=== PATIENT | female | born 1990 | race Caucasian/White ===

== ENCOUNTER 2018-10-08 04:52 | Inpatient (IN) | payer OTHER ==
[2018-10-08] MEDS ORDERED: Ondansetron 4 MG/2 ML SDV IVPUSH PRN (05:01)
[2018-10-08] MEDS ORDERED: Nalbuphine 20 MG/ML 1 ML Syringe IVPUSH PRN (05:01)
[2018-10-08] MEDS ORDERED: Sodium Chloride 0.9% 10 ML Syringe FLUSH PRN (05:01)
[2018-10-08] MEDS ORDERED: Ampicillin 2 GM in Sodium Chloride 0.9% 100 ML IV ONE (05:01)
[2018-10-08] MEDS ORDERED: Lactated Ringers 1,000 ML ONE (05:11)
[2018-10-08] MEDS ORDERED: Ampicillin 2 GM AdvVial IV ONE (05:11)
[2018-10-08] MEDS ORDERED: Sodium Chloride 0.9% 100 ML ONE (05:11)
[2018-10-08] MEDS ORDERED: Oxytocin/Lactated Ringers 10 UNIT/1,000 ML BAG IV SCH (05:15)
--- NOTE | 2018-10-08 06:29 | PCM.LDHP ---
L&D History of Present Illness - General Date of Service: 10/08/18 Admit Problem/Dx: Patient Status Order with Admit Dx/Problem 10/08/18 05:01 Patient Status [ADT] Routine Admission Diagnosis/Problem Admission Diagnosis/Problem Active labor Source of Information: Patient History Limitations: Reports: No Limitations - History of Present Illness Introduction:: Patient is a 28 y/o at 38 3/7 wks who presents in labor. Contractions started early this AM. No bleeding or LOF. 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 (Approximate): Neurological History: Reports: Migraines - Infectious Disease History Infectious Disease History: Reports: Chicken Pox - Past Surgical History Other Surgical History Comment: Past surgical history Social & Family History - Family History Family Medical History: Noncontributory - Tobacco Use Smoking Status *Q: Never Smoker - Caffeine Use Caffeine Use: Reports: Coffee - Alcohol Use Alcohol Use History: No - Recreational Drug Use Recreational Drug Use: No - Living Situation & Occupation Living situation: Reports: Occupation: Employed H&P Review of Systems - Review of Systems: Review Of Systems: See Below General: Reports: No Symptoms Pulmonary: Reports: No Symptoms Cardiovascular: Reports: No Symptoms Gastrointestinal: Reports: No Symptoms Genitourinary: Reports: No Symptoms Musculoskeletal: Reports: No Symptoms Neurological: Reports: No Symptoms L&D Exam - Exam Exam: See Below - OB Specific Contraction Intensity: Moderate to Strong Movement: Active Heart Tones: Present Heart Tones per Min: 145 Heart Rate (FHR) Variability: Moderate (6-25 bmp) Presentation: Vertex - Villegas Score Villegas Score Cervix Position: Midposition Villegas Score Consistency: Soft Villegas Score Effacement: >80% Villegas Score Dilation: > 5 cm Villegas Score 's Station: -1 ,0 Villegas Score Total: 11 - Exam General: Alert, Oriented, Cooperative Lungs: Clear to Auscultation, Normal Respiratory Effort Cardiovascular: Regular Rate, Regular Rhythm GI/Abdominal Exam: Soft, Non-Tender Genitourinary: Normal external exam Extremities: Normal Inspection Skin: Warm, Dry, Intact - Patient Data Lab Results Last 24 hrs: Laboratory Results - last 24 hr 10/08/18 10/08/18 Range/Units 05:18 05:18 WBC 14.00 H (3.98-10.04) K/mm3 RBC 3.78 L (3.98-5.22) M/mm3 Hgb 11.0 L (11.2-15.7) gm/L Hct 33.0 L (34.1-44.9) % MCV 87.3 (79.4-94.8) fl MCH 29.1 (25.6-32.2) pg MCHC 33.3 (32.2-35.5) g/dl RDW Std Deviation 42.8 (36.4-46.3) fL Plt Count 119 L (182-369) K/mm3 MPV 12.4 H (9.4-12.3) fl Neut % (Auto) 81.4 H (34.0-71.1) % Lymph % (Auto) 11.1 L (19.3-51.7) % [place] % (Auto) 6.5 (4.7-12.5) % Eos % (Auto) 0.5 L (0.7-5.8) Baso % (Auto) 0.1 (0.1-1.2) % Neut # (Auto) 11.38 H (1.56-6.13) K/mm3 Lymph # (Auto) 1.56 (1.18-3.74) K/mm3 [place] # (Auto) 0.91 H (0.24-0.36) K/mm3 Eos # (Auto) 0.07 (0.04-0.36) K/mm3 Baso # (Auto) 0.02 (0.01-0.08) K/mm3 Blood Type O NEGATIVE Gel Antibody Screen Positive Result Diagrams: 10/08/18 05:18 - Problem List (1) 38 weeks gestation of SNOMED Code(s): 50801779 ICD Code: Z3A.38 - 38 WEEKS GESTATION OF Status: Acute Current Visit: Yes (2) Rh negative state in antepartum period SNOMED Code(s): 194664550 ICD Code: O09.899 - SUPERVISION OF OTHER HIGH RISK PREGNANCIES, UNSP TRIMESTER; Z67.91 - UNSPECIFIED BLOOD TYPE, RH NEGATIVE Status: Acute Current Visit: Yes (3) GBS (group B Streptococcus carrier), +RV culture, currently SNOMED Code(s): 6283606569407, 447853311, 0131941585313 ICD Code: O99.820 - STREPTOCOCCUS B CARRIER STATE COMPLICATING Status: Acute Current Visit: Yes Problem List Initiated/Reviewed/Updated: Yes Orders Last 24hrs: Active Orders 24 hr Category Date Time Status Patient Status [ADT] Routine ADT 10/08/18 05:01 Active Activity as Tolerated [RC] PFP Care 10/08/18 05:01 Active Communication Order [RC] ASDIRECTED Care 10/08/18 05:01 Active Heart Tones [RC] ASDIRECTED Care 10/08/18 05:02 Active Non Stress Test [RC] PER UNIT ROUTINE Care 10/08/18 05:01 Active Notify Provider [RC] PFP Care 10/08/18 05:01 Active Notify Provider [RC] PRN Care 10/08/18 05:01 Active Peripheral IV Care [RC] . DIRECTED Care 10/08/18 05:02 Active Vital Signs [RC] PER UNIT ROUTINE Care 10/08/18 05:01 Active Regular Diet [DIET] Diet 10/08/18 Breakfast Active ANTIBODY IDENTIFICATION [BBK] Stat Lab 10/08/18 05:18 Results RAPID PLASMA REAGIN,RPR [CHEM] Routine Lab 10/08/18 05:18 Received TYPE AND SCREEN [BBK] Stat Lab 10/08/18 05:18 Results Ampicillin 1 gm Med 10/08/18 09:00 Active Sodium Chloride 0.9% [Normal Saline] 100 ml IV Q4H Lactated Ringers [Ringers, Lactated] 1,000 ml Med 10/08/18 05:15 Active IV ASDIRECTED Nalbuphine [Nubain] Med 10/08/18 05:01 Active 10 mg IVPUSH Q2H PRN Ondansetron [Zofran] Med 10/08/18 05:01 Active 4 mg IVPUSH Q4H PRN Oxytocin/Lactated Ringers [Pitocin in LR 10 Units/1,000 Med 10/08/18 05:15 Active ML] 10 unit in 1,000 ml IV .CONTINUOUS Sodium Chloride 0.9% [Saline Flush] Med 10/08/18 05:01 Active 10 ml FLUSH ASDIRECTED PRN Electronic Heart Tones Ext w TOCO [WOMSER] Oth 10/08/18 05:01 Ordered Routine Electronic Heart Tones Internal [WOMSER] Per Unit Oth 10/08/18 05:01 Ordered Routine Peripheral IV Insertion Adult [OM.PC] Routine Oth 10/08/18 05:01 Ordered Resuscitation Status Routine Resus Stat 10/08/18 05:01 Ordered Medication Orders Ampicillin Sodium 1 gm/ Sodium (Chloride) 100 mls @ 200 mls/hr IV Q4H KODI Lactated Ringer's (Ringers, Lactated) 1,000 mls @ 100 mls/hr IV ASDIRECTED KODI Oxytocin/Lactated Ringer's (Pitocin In Lr 10 Units/1,000 Ml) 10 unit in 1,000 mls @ 500 mls/hr IV .CONTINUOUS KODI Nalbuphine HCl (Nubain) 10 mg IVPUSH Q2H PRN PRN Reason: pain Ondansetron HCl (Zofran) 4 mg IVPUSH Q4H PRN PRN Reason: Nausea/Vomiting Sodium Chloride (Saline Flush) 10 ml FLUSH ASDIRECTED PRN PRN Reason: Keep Vein Open Assessment/Plan Comment:: 28 y/o at 38 3/7 wks who presents in labor * Labs done * GBS positive, plan Ampicillin in labor * Pain management per patient preference * Anticipate * Rh negative, will assess baby blood type following delivery to see if Rhogam required
[2018-10-08] MEDS: Lactated Ringers 1,000 ML IV SCH ×3 (07:00→11:48)
[2018-10-08] MEDS ORDERED: ePHEDrine 50 MG/ML SDV IVPUSH PRN (07:10)
[2018-10-08] MEDS ORDERED: diphenhydrAMINE 50 MG/ML SDV IVPUSH PRN (07:10)
[2018-10-08] MEDS ORDERED: fentaNYL 100 MCG/2 ML SDV ONE (07:12)
[2018-10-08] MEDS ORDERED: Bupivacaine/fentaNYL/NS 100 ML Bag EPIDUR SCH (07:15)
--- NOTE | 2018-10-08 07:32 | PCM.PREANE ---
Preanesthetic Assessment - Procedure Proposed Procedure: chele - Anesthesia/Transfusion/Family Hx Anesthesia History: Prior Anesthesia Without Reaction Family History of Anesthesia Reaction: No Transfusion History: Prior Transfusion Without Reaction - Review of Systems General: No Symptoms Pulmonary: No Symptoms Cardiovascular: No Symptoms Gastrointestinal: No Symptoms Neurological: No Symptoms Other: Reports: None - Physical Assessment O2 Sat by Pulse Oximetry: 99 Respiratory Rate: 16 Vital Signs: Last Vital Signs Temp 98.1 F 10/08/18 05:01 Pulse 96 10/08/18 05:01 Resp 16 10/08/18 05:01 BP 126/89 10/08/18 05:01 Pulse Ox 99 10/08/18 05:01 Height: 5 ft 1 in Weight: 63.049 kg ASA Class: 2 Mental Status: Alert & Oriented x3 Airway Class: Mallampati = 1 Dentition: Reports: Normal Dentition Thyro-Mental Finger Breadths: 3 Mouth Opening Finger Breadths: 3 ROM/Head Extension: Full Lungs: Clear to Auscultation, Normal Respiratory Effort Cardiovascular: Regular Rate, Regular Rhythm - Lab Values: Laboratory Last Values WBC 14.00 K/mm3 (3.98-10.04) H 10/08/18 05:18 RBC 3.78 M/mm3 (3.98-5.22) L 10/08/18 05:18 Hgb 11.0 gm/L (11.2-15.7) L 10/08/18 05:18 Hct 33.0 % (34.1-44.9) L 10/08/18 05:18 MCV 87.3 fl (79.4-94.8) 10/08/18 05:18 MCH 29.1 pg (25.6-32.2) 10/08/18 05:18 MCHC 33.3 g/dl (32.2-35.5) 10/08/18 05:18 RDW Std Deviation 42.8 fL (36.4-46.3) 10/08/18 05:18 Plt Count 119 K/mm3 (182-369) L 10/08/18 05:18 MPV 12.4 fl (9.4-12.3) H 10/08/18 05:18 Neut % (Auto) 81.4 % (34.0-71.1) H 10/08/18 05:18 Lymph % (Auto) 11.1 % (19.3-51.7) L 10/08/18 05:18 [place] % (Auto) 6.5 % (4.7-12.5) 10/08/18 05:18 Eos % (Auto) 0.5 (0.7-5.8) L 10/08/18 05:18 Baso % (Auto) 0.1 % (0.1-1.2) 10/08/18 05:18 Neut # (Auto) 11.38 K/mm3 (1.56-6.13) H 10/08/18 05:18 Lymph # (Auto) 1.56 K/mm3 (1.18-3.74) 10/08/18 05:18 [place] # (Auto) 0.91 K/mm3 (0.24-0.36) H 10/08/18 05:18 Eos # (Auto) 0.07 K/mm3 (0.04-0.36) 10/08/18 05:18 Baso # (Auto) 0.02 K/mm3 (0.01-0.08) 10/08/18 05:18 Blood Type O NEGATIVE 10/08/18 05:18 Gel Antibody Screen Positive 10/08/18 05:18 - Allergies Allergies/Adverse Reactions: Allergies Allergy/AdvReac Type Severity Reaction Status Date / Time No Known Allergies Allergy Verified 09/29/16 12:34 - Blood Blood Available: No - Acknowledgements Anesthesia Type Planned: Epidural Pt an Appropriate Candidate for the Planned Anesthesia: Yes Alternatives and Risks of Anesthesia Discussed w Pt/Guardian: Yes Pt/Guardian Understands and Agrees with Anesthesia Plan: Yes PreAnesthesia Questionnaire HEENT History: Reports: Impaired Vision Cardiovascular History: Reports: None Respiratory History: Reports: None Gastrointestinal History: Reports: GERD (with preg) Genitourinary History: Reports: None 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) Para: 1 Musculoskeletal History: Reports: None Endocrine/Metabolic History: Reports: None Hematologic History: Reports: Anemia Immunologic History: Reports: None Oncologic (Cancer) History: Reports: None Dermatologic History: Reports: None - Infectious Disease History Infectious Disease History: Reports: Chicken Pox - Past Surgical History GI Surgical History: Reports: EGD Other Surgical History Comment: Past surgical history - SUBSTANCE USE Smoking Status *Q: Never Smoker Tobacco Use Within Last Twelve Months: No Second Hand Smoke Exposure: No Recreational Drug Use History: No - HOME MEDS Home Medications: Home Meds Acetaminophen [Tylenol] 650 mg PO Q4H PRN #30 tablet 09/30/16 [Rx] Omeprazole 20 mg PO BIDAC #60 cap.cr 09/30/16 [Rx] Ondansetron [Zofran ODT] 4 mg PO Q4H PRN #30 tab.dis 09/30/16 [Rx] Sucralfate [Carafate] 1 gm PO QIDACANDBED #60 tablet 09/30/16 [Rx] - CURRENT (IN HOUSE) MEDS Current Meds: Current Medications Diphenhydramine HCl (Benadryl) 25 mg IVPUSH Q6H PRN PRN Reason: pruritis Ephedrine Sulfate (Ephedrine Sulfate) 5 mg IVPUSH ASDIRECTED PRN PRN Reason: Hypotension Fentanyl (Sublimaze) 100 mcg EPIDUR Q3H PRN PRN Reason: Pain Fentanyl/Bupivacaine HCl (Fentanyl/Bupivacaine/Ns 2 Mcg-0.125% 100 Ml) 100 ml EPIDUR ASDIRECTED KODI Ampicillin Sodium 1 gm/ Sodium (Chloride) 100 mls @ 200 mls/hr IV Q4H KODI Lactated Ringer's (Ringers, Lactated) 1,000 mls @ 100 mls/hr IV ASDIRECTED KODI Oxytocin/Lactated Ringer's (Pitocin In Lr 10 Units/1,000 Ml) 10 unit in 1,000 mls @ 500 mls/hr IV .CONTINUOUS KODI Nalbuphine HCl (Nubain) 10 mg IVPUSH Q2H PRN PRN Reason: pain Ondansetron HCl (Zofran) 4 mg IVPUSH Q4H PRN PRN Reason: Nausea/Vomiting Sodium Chloride (Saline Flush) 10 ml FLUSH ASDIRECTED PRN PRN Reason: Keep Vein Open Discontinued Medications Ampicillin Sodium (Ampicillin) Confirm Administered Dose 2 gm IV .STK-MED ONE Stop: 10/08/18 05:12 Fentanyl (Sublimaze) Confirm Administered Dose 100 mcg .ROUTE .STK-MED ONE Stop: 10/08/18 07:13 Ampicillin Sodium 2 gm/ Sodium (Chloride) 100 mls @ 200 mls/hr IV ONETIME ONE Stop: 10/08/18 05:30 Last Admin: 10/08/18 05:15 Dose: 200 mls/hr Lactated Ringer's (Ringers, Lactated) Confirm Administered Dose 1,000 mls @ as directed .ROUTE .[facility]-MED ONE Stop: 10/08/18 05:12 Last Admin: 10/08/18 05:15 Dose: 900 mls/hr Sodium Chloride (Normal Saline) Confirm Administered Dose 100 mls @ as directed .ROUTE .[facility]-MED ONE Stop: 10/08/18 05:12
[2018-10-08] MEDS: fentaNYL 100 MCG/2 ML SDV EPIDUR PRN ×2 (07:33→12:15)
[2018-10-08] MEDS: Ampicillin 1 GM in Sodium Chloride 0.9% 100 ML IV SCH ×2 (09:00→14:35)
[2018-10-08] MEDS ORDERED: Bupivacaine 0.25% 10 ML SDV ONE (12:00)
--- NOTE | 2018-10-08 12:58 | PCM.DEL ---
L & D Note - General Info Date of Service: 10/08/18 - Delivery Note Labor: Spontaneous Delivery Outcome: Livebirth Delivery Method: Spontaneous Vaginal Delivery-Single Delivery Mode: Spontaneous Presentation: Right Occiput Anterior (CORA) Nuchal Cord: Present, Reduced Anesthesia Type: Epidural Amniotic Fluid Description: Clear Episiotomy Type: None Laceration: None Placenta: Intact, Spontaneous Cord: 3 Vessels Estimated Blood Loss: 200 Resuscitation Needed: Yes [place]oll: Bulb Syringe, Stimulated, Warmed, [place] Used, Warmer Used Delivery Comments (Free Text/Narrative):: Patient found to be complete and began pushing. With maternal pushing effort head delivered from an CORA presentation. Nuchal cord present and reduced. With gentle downward tractions anterior shoulder did not immediately deliver. Patient then placed in deeper McRobert's and anterior shoulder delivered. Remainder of body quickly followed. Baby placed on maternal abdomen. Cord clamped and cut. Cord blood obtained. Placenta allowed time to separate and expelled intact. Inspection of the perineum showed no lacerations - General Info Date of Service: 10/08/18 - Patient Data Vitals - Most Recent: Last Vital Signs Temp 36.7 C 10/08/18 05:01 Pulse 96 10/08/18 05:01 Resp 16 10/08/18 07:32 BP 126/89 10/08/18 05:01 Pulse Ox 99 10/08/18 07:32 Weight - Most Recent: 63.049 kg I&O - Last 24 Hours: Intake & Output 10/07/18 10/08/18 10/08/18 22:59 06:59 14:59 Intake Total 1100 Balance 1100 Lab Results Last 24 Hours: Laboratory Results - last 24 hr 10/08/18 10/08/18 10/08/18 Range/Units 05:18 05:18 05:18 WBC 14.00 H (3.98-10.04) K/mm3 RBC 3.78 L (3.98-5.22) M/mm3 Hgb 11.0 L (11.2-15.7) gm/L Hct 33.0 L (34.1-44.9) % MCV 87.3 (79.4-94.8) fl MCH 29.1 (25.6-32.2) pg MCHC 33.3 (32.2-35.5) g/dl RDW Std Deviation 42.8 (36.4-46.3) fL Plt Count 119 L (182-369) K/mm3 MPV 12.4 H (9.4-12.3) fl Neut % (Auto) 81.4 H (34.0-71.1) % Lymph % (Auto) 11.1 L (19.3-51.7) % [place] % (Auto) 6.5 (4.7-12.5) % Eos % (Auto) 0.5 L (0.7-5.8) Baso % (Auto) 0.1 (0.1-1.2) % Neut # (Auto) 11.38 H (1.56-6.13) K/mm3 Lymph # (Auto) 1.56 (1.18-3.74) K/mm3 [place] # (Auto) 0.91 H (0.24-0.36) K/mm3 Eos # (Auto) 0.07 (0.04-0.36) K/mm3 Baso # (Auto) 0.02 (0.01-0.08) K/mm3 RPR Non-reactive (NONREACTIVE) Blood Type O NEGATIVE Gel Antibody Screen Positive Med Orders - Current: Current Medications Diphenhydramine HCl (Benadryl) 25 mg IVPUSH Q6H PRN PRN Reason: pruritis Ephedrine Sulfate (Ephedrine Sulfate) 5 mg IVPUSH ASDIRECTED PRN PRN Reason: Hypotension Fentanyl (Sublimaze) 100 mcg EPIDUR Q3H PRN PRN Reason: Pain Last Admin: 10/08/18 12:15 Dose: 100 mcg Fentanyl/Bupivacaine HCl (Fentanyl/Bupivacaine/Ns 2 Mcg-0.125% 100 Ml) 100 ml EPIDUR ASDIRECTED [facility] Last Admin: 10/08/18 07:34 Dose: 100 ml Ampicillin Sodium 1 gm/ Sodium (Chloride) 100 mls @ 200 mls/hr IV Q4H [facility] Last Admin: 10/08/18 09:00 Dose: 200 mls/hr Lactated Ringer's (Ringers, Lactated) 1,000 mls @ 100 mls/hr IV ASDIRECTED [facility] Last Admin: 10/08/18 11:48 Dose: 999 mls/hr Oxytocin/Lactated Ringer's (Pitocin In Lr 10 Units/1,000 Ml) 10 unit in 1,000 mls @ 500 mls/hr IV .CONTINUOUS KODI Last Admin: 10/08/18 11:01 Dose: 500 mls/hr Nalbuphine HCl (Nubain) 10 mg IVPUSH Q2H PRN PRN Reason: pain Ondansetron HCl (Zofran) 4 mg IVPUSH Q4H PRN PRN Reason: Nausea/Vomiting Sodium Chloride (Saline Flush) 10 ml FLUSH ASDIRECTED PRN PRN Reason: Keep Vein Open Discontinued Medications Ampicillin Sodium (Ampicillin) Confirm Administered Dose 2 gm IV .STK-MED ONE Stop: 10/08/18 05:12 Last Admin: 10/08/18 07:42 Dose: Not Given Fentanyl (Sublimaze) Confirm Administered Dose 100 mcg .ROUTE .STK-MED ONE Stop: 10/08/18 07:13 Last Admin: 10/08/18 07:41 Dose: Not Given Ampicillin Sodium 2 gm/ Sodium (Chloride) 100 mls @ 200 mls/hr IV ONETIME ONE Stop: 10/08/18 05:30 Last Admin: 10/08/18 05:15 Dose: 200 mls/hr Lactated Ringer's (Ringers, Lactated) Confirm Administered Dose 1,000 mls @ as directed .ROUTE .STK-MED ONE Stop: 10/08/18 05:12 Last Admin: 10/08/18 05:15 Dose: 900 mls/hr Sodium Chloride (Normal Saline) Confirm Administered Dose 100 mls @ as directed .ROUTE .STK-MED ONE Stop: 10/08/18 05:12 Last Admin: 10/08/18 07:42 Dose: Not Given - Problem List & Annotations (1) 38 weeks gestation of SNOMED Code(s): 90740136 Code(s): Z3A.38 - 38 WEEKS GESTATION OF Status: Acute Current Visit: Yes (2) Rh negative state in antepartum period SNOMED Code(s): 648646353 Code(s): O09.899 - SUPERVISION OF OTHER HIGH RISK PREGNANCIES, UNSP TRIMESTER ; Z67.91 - UNSPECIFIED BLOOD TYPE, RH NEGATIVE Status: Acute Current Visit: Yes (3) GBS (group B Streptococcus carrier), +RV culture, currently SNOMED Code(s): 0444425963919, 880128545, 1807703791696 Code(s): O99.820 - STREPTOCOCCUS B CARRIER STATE COMPLICATING Status: Acute Current Visit: Yes - Problem List Review Problem List Initiated/Reviewed/Updated: Yes - My Orders Last 24 Hours: My Active Orders 10/08/18 05:01 Patient Status [ADT] Routine Activity as Tolerated [RC] PFP Communication Order [RC] ASDIRECTED Non Stress Test [RC] PER UNIT ROUTINE Notify Provider [RC] PFP Notify Provider [RC] PRN Vital Signs [RC] PER UNIT ROUTINE Nalbuphine [Nubain] 10 mg IVPUSH Q2H PRN Ondansetron [Zofran] 4 mg IVPUSH Q4H PRN Sodium Chloride 0.9% [Saline Flush] 10 ml FLUSH ASDIRECTED PRN Electronic Heart Tones Ext w TOCO [WOMSER] Routine Electronic Heart Tones Internal [WOMSER] Per Unit Routine Peripheral IV Insertion Adult [OM.PC] Routine Resuscitation Status Routine 10/08/18 05:02 Heart Tones [RC] ASDIRECTED Peripheral IV Care [RC] . DIRECTED 10/08/18 05:15 Lactated Ringers [Ringers, Lactated] 1,000 ml IV ASDIRECTED Oxytocin/Lactated Ringers [Pitocin in LR 10 Units/1,000 ML] 10 unit in 1,000 ml IV .CONTINUOUS 10/08/18 05:18 ANTIBODY IDENTIFICATION [BBK] Stat TYPE AND SCREEN [BBK] Stat 10/08/18 09:00 Ampicillin 1 gm Sodium Chloride 0.9% [Normal Saline] 100 ml IV Q4H 10/08/18 Breakfast Regular Diet [DIET] - Assessment Assessment:: 28 y/o G2 now P2002 PPD#0 from at 38 3/7 wks - Plan Plan:: * Routine cares * Encourage breast feeding * Rh negative, Baby Rh positive. Will need Rhogam * Discharge home in 1-2 days
[2018-10-08] MEDS ORDERED: Docusate Sodium 100 MG Cap PO PRN (13:27)
[2018-10-08] MEDS ORDERED: Benzocaine/Menthol 20%-0.5% Spray 56 GM Canister TOP PRN (13:27)
[2018-10-08] MEDS ORDERED: Acetaminophen 325 MG Tab PO PRN (13:27)
[2018-10-08] MEDS ORDERED: Lanolin 100% Cream 7 GM Tube TOP PRN (13:27)
[2018-10-08] MEDS ORDERED: Witch Hazel Medicated Pads 100/Jar TOP PRN (13:27)
[2018-10-08] MEDS ORDERED: Ibuprofen 600 MG Tab PO PRN (13:27)
--- NOTE | 2018-10-09 07:39 | PCM48HPAN ---
Post Anesthesia Note - EVALUATION WITHIN 48HRS OF ANESTHETIC Vital Signs in Normal Range: Yes Patient Participated in Evaluation: Yes Respiratory Function Stable: Yes Airway Patent: Yes Cardiovascular Function Stable: Yes Hydration Status Stable: Yes Pain Control Satisfactory: Yes Nausea and Vomiting Control Satisfactory: Yes Mental Status Recovered: Yes Pulse Rate: 78 Resp Rate: 14 Temperature: 36.8 C Blood Pressure: 118/64 - COMMENTS/OBSERVATIONS Free Text/Narrative:: no anesthesia complications noted
--- NOTE | 2018-10-09 07:58 | PCM.PNPP ---
- General Info Date of Service: 10/09/18 Functional Status: Reports: Pain Controlled, Tolerating Diet, Ambulating, Urinating - Review of Systems General: Reports: No Symptoms Pulmonary: Reports: No Symptoms Cardiovascular: Reports: No Symptoms Gastrointestinal: Reports: No Symptoms Genitourinary: Reports: No Symptoms Musculoskeletal: Reports: No Symptoms Neurological: Reports: No Symptoms - Patient Data Vital Signs - Most Recent: Last Vital Signs Temp 36.8 C 10/09/18 07:39 Pulse 78 10/09/18 07:39 Resp 14 10/09/18 07:39 BP 118/64 10/09/18 07:39 Pulse Ox 98 10/09/18 04:07 Weight - Most Recent: 63.049 kg I&O - Last 24 Hours: Intake & Output 10/08/18 10/09/18 10/09/18 22:59 06:59 14:59 Intake Total 12 Balance 12 Lab Results - Last 24 Hours: Laboratory Results - last 24 hr 10/08/18 10/08/18 Range/Units 05:18 17:36 RPR Non-reactive (NONREACTIVE) Blood Type O NEGATIVE Gel Antibody Screen Positive Screen 1 ros/5 flds - neg RhIG Candidate? Yes Rhogam Indicated Yes, baby rh pos H Med Orders - Current: Current Medications Acetaminophen (Tylenol) 650 mg PO Q4H PRN PRN Reason: mild pain or fever Benzocaine/Menthol (Dermoplast Pain Relief [place]) 0 gm TOP ASDIRECTED PRN PRN Reason: Perineal Comfort Measure Last Admin: 10/08/18 16:13 Dose: 1 can Docusate Sodium (Colace) 100 mg PO BID PRN PRN Reason: Constipation Emollient Ointment (Lansinoh Hpa) 0 gm TOP ASDIRECTED PRN PRN Reason: Sore Nipples Ibuprofen (Motrin) 600 mg PO Q6H PRN PRN Reason: Mild pain or fever Witch Carmelita (Tucks) 1 pad TOP ASDIRECTED PRN PRN Reason: Hemorrhoid pain Last Admin: 10/08/18 16:14 Dose: 1 jar Discontinued Medications Ampicillin Sodium (Ampicillin) Confirm Administered Dose 2 gm IV .STK-MED ONE Stop: 10/08/18 05:12 Last Admin: 10/08/18 07:42 Dose: Not Given Bupivacaine HCl (Sensorcaine-Mpf 0.25%) 20 ml .ROUTE .STK-MED ONE Stop: 10/08/18 12:01 Diphenhydramine HCl (Benadryl) 25 mg IVPUSH Q6H PRN PRN Reason: pruritis Ephedrine Sulfate (Ephedrine Sulfate) 5 mg IVPUSH ASDIRECTED PRN PRN Reason: Hypotension Fentanyl (Sublimaze) 100 mcg EPIDUR Q3H PRN PRN Reason: Pain Last Admin: 10/08/18 12:15 Dose: 100 mcg Fentanyl (Sublimaze) Confirm Administered Dose 100 mcg .ROUTE .STK-MED ONE Stop: 10/08/18 07:13 Last Admin: 10/08/18 07:41 Dose: Not Given Fentanyl/Bupivacaine HCl (Fentanyl/Bupivacaine/Ns 2 Mcg-0.125% 100 Ml) 100 ml EPIDUR ASDIRECTED KODI Last Admin: 10/08/18 07:34 Dose: 100 ml Ampicillin Sodium 2 gm/ Sodium (Chloride) 100 mls @ 200 mls/hr IV ONETIME ONE Stop: 10/08/18 05:30 Last Admin: 10/08/18 05:15 Dose: 200 mls/hr Ampicillin Sodium 1 gm/ Sodium (Chloride) 100 mls @ 200 mls/hr IV Q4H [facility] Last Admin: 10/08/18 14:35 Dose: Not Given Lactated Ringer's (Ringers, Lactated) 1,000 mls @ 100 mls/hr IV ASDIRECTED [facility] Last Admin: 10/08/18 11:48 Dose: 999 mls/hr Oxytocin/Lactated Ringer's (Pitocin In Lr 10 Units/1,000 Ml) 10 unit in 1,000 mls @ 500 mls/hr IV .CONTINUOUS KODI Last Admin: 10/08/18 11:01 Dose: 500 mls/hr Lactated Ringer's (Ringers, Lactated) Confirm Administered Dose 1,000 mls @ as directed .ROUTE .STK-MED ONE Stop: 10/08/18 05:12 Last Admin: 10/08/18 05:15 Dose: 900 mls/hr Sodium Chloride (Normal Saline) Confirm Administered Dose 100 mls @ as directed .ROUTE .STK-MED ONE Stop: 10/08/18 05:12 Last Admin: 10/08/18 07:42 Dose: Not Given Nalbuphine HCl (Nubain) 10 mg IVPUSH Q2H PRN PRN Reason: pain Ondansetron HCl (Zofran) 4 mg IVPUSH Q4H PRN PRN Reason: Nausea/Vomiting Sodium Chloride (Saline Flush) 10 ml FLUSH ASDIRECTED PRN PRN Reason: Keep Vein Open - Infant Interaction Disposition, : in Room with Family Interaction: Holding Feeding: Attempted ; Nursed Fair/Poor Support Person: - Recovery Exam Fundal Tone: Firm Fundal Level: At Umbilicus Fundal Placement: Midline Lochia Amount: Small Lochia Color: Rubra/Red Perineum Description: Intact, Minimal Bruising/Swelling Episiotomy/Laceration: None Bladder Status: Voiding Urinary Elimination: Voided - Exam General: Alert, Oriented, Cooperative GI/Abdominal Exam: Soft, Non-Tender Extremities: Normal Inspection Skin: Warm, Dry, Intact - Problem List & Annotations (1) 38 weeks gestation of SNOMED Code(s): 22113279 Code(s): Z3A.38 - 38 WEEKS GESTATION OF Status: Acute Current Visit: Yes (2) Rh negative state in antepartum period SNOMED Code(s): 290184435 Code(s): O09.899 - SUPERVISION OF OTHER HIGH RISK PREGNANCIES, UNSP TRIMESTER ; Z67.91 - UNSPECIFIED BLOOD TYPE, RH NEGATIVE Status: Acute Current Visit: Yes (3) GBS (group B Streptococcus carrier), +RV culture, currently SNOMED Code(s): 2264612513549, 692372228, 1883664710365 Code(s): O99.820 - STREPTOCOCCUS B CARRIER STATE COMPLICATING Status: Acute Current Visit: Yes (4) Vaginal delivery SNOMED Code(s): 637252344 Code(s): O80 - ENCOUNTER FOR FULL-TERM UNCOMPLICATED DELIVERY Status: Acute Current Visit: Yes - Problem List Review Problem List Initiated/Reviewed/Updated: Yes - My Orders Last 24 Hours: My Active Orders 10/08/18 13:27 Activity as Tolerated [RC] PER UNIT ROUTINE Vital Signs [RC] 03,09,15,21 Acetaminophen [Tylenol] 650 mg PO Q4H PRN Benzocaine/Menthol [Dermoplast Pain Relief [place]] See Dose Instructions TOP ASDIRECTED PRN Docusate Sodium [Colace] 100 mg PO BID PRN Ibuprofen [Motrin] 600 mg PO Q6H PRN Lanolin [Lansinoh HPA] See Dose Instructions TOP ASDIRECTED PRN Witch Carmelita [Tucks] 1 pad TOP ASDIRECTED PRN Assess Lochia [WOMSER] Per Unit Routine Assess Uterine Involution [WOMSER] Per Unit Routine Breast Pump [WOMSER] Per Unit Routine Heat Therapy [OM.PC] PRN Ice Therapy [OM.PC] Per Unit Routine Perineal Care [OM.PC] Per Unit Routine Peripheral IV Discontinue [OM.PC] Routine Sitz Bath [OM.PC] Per Unit Routine 10/08/18 Lunch Regular Diet [DIET] 10/09/18 13:27 Heat Therapy [OM.PC] PRN - Assessment Assessment:: 28 y/o G2 now P2002 PPD#1 from at 38 3/7 wks - Plan Plan:: * Routine cares * Encourage breast feeding * Rh negative, Baby Rh positive. S/p Rhogam * Discharge home today vs tomorrow depending upon how baby continues to breast feed throughout the day
[2018-10-10 08:49] VITALS: BP 124/77
--- NOTE | 2018-10-10 08:52 | PCM.DCSUM1 ---
Discharge Summary - Hospital Course Free Text/Narrative:: Vern is a 28-year-old 2 now para 2002 white female who was admitted at 38-3/7 weeks gestational age on all 01/05/2018 in active labor. She progressed and delivered spontaneously. She had a tucker, viable, male in right occiput anterior position. Nuchal cord 1 was reduced without problems. She had epidural for labor. Amniotic fluid was clear. She had no lacerations or suturing as necessary. Umbilical cord had 3 vessels. Estimated blood loss was 200 mL. patient is nursing without problems. Lochia is minimal. She is voiding well and ambulating without concerns. She is desiring discharge home. Diagnosis: Stroke: No - Discharge Data Discharge Date: 10/10/18 Discharge Disposition: Home, Self-Care 01 Condition: Good - Patient Instructions Diet: Regular Diet as Tolerated (Nursing diet and increase calories and calcium is recommended) Activity: As Tolerated (Kline or tampons until bleeding resolves.) Driving: May Drive Today Showering/Bathing: May Shower (May take a bath) Notify Provider of: Fever, Increased Pain, Swelling and Redness, Nausea and/or Vomiting - Discharge Plan Home Medications: Home Meds Acetaminophen [Tylenol] 650 mg PO Q4H PRN #30 tablet 09/30/16 [Rx] Omeprazole 20 mg PO BIDAC #60 cap.cr 09/30/16 [Rx] Ondansetron [Zofran ODT] 4 mg PO Q4H PRN #30 tab.dis 09/30/16 [Rx] Sucralfate [Carafate] 1 gm PO QIDACANDBED #60 tablet 09/30/16 [Rx] Acetaminophen [Tylenol] 650 mg PO Q4H PRN tablet 10/10/18 [Rx] Ibuprofen [Motrin] 600 mg PO Q6H PRN tablet 10/10/18 [Rx] Referrals: Abigail Skinner MD [Primary Care Provider] - ([facility] - Discharge Summary/Plan Comment DC Time >30 min.: No Discharge Summary/Plan Comment: Discharge instructions: 1. Discharge home 2. Diet, activity and follow-up discussed with patient. Recommend nursing diet with increased calories and calcium. 3. Precautions given concern increased pain, bleeding, temperature, signs/ symptoms of DVT/PE. 4. Medications per home medication was printed, discussed with and given to the patient. 5. Return to clinic-Dr. Skinner at [facility] in 2 weeks. Diagnosis: Term -delivered Condition: Good - Patient Data Vitals - Most Recent: Last Vital Signs Temp 36.6 C 10/10/18 03:38 Pulse 63 10/10/18 03:38 Resp 16 10/10/18 03:38 BP 126/89 10/10/18 03:38 Pulse Ox 99 10/10/18 03:38 Weight - Most Recent: 63.049 kg Med Orders - Current: Current Medications Acetaminophen (Tylenol) 650 mg PO Q4H PRN PRN Reason: mild pain or fever Benzocaine/Menthol (Dermoplast Pain Relief [place]) 0 gm TOP ASDIRECTED PRN PRN Reason: Perineal Comfort Measure Last Admin: 10/08/18 16:13 Dose: 1 can Docusate Sodium (Colace) 100 mg PO BID PRN PRN Reason: Constipation Emollient Ointment (Lansinoh Hpa) 0 gm TOP ASDIRECTED PRN PRN Reason: Sore Nipples Ibuprofen (Motrin) 600 mg PO Q6H PRN PRN Reason: Mild pain or fever Witch Carmelita (Tucks) 1 pad TOP ASDIRECTED PRN PRN Reason: Hemorrhoid pain Last Admin: 10/08/18 16:14 Dose: 1 jar Discontinued Medications Ampicillin Sodium (Ampicillin) Confirm Administered Dose 2 gm IV .STK-MED ONE Stop: 10/08/18 05:12 Last Admin: 10/08/18 07:42 Dose: Not Given Bupivacaine HCl (Sensorcaine-Mpf 0.25%) 20 ml .ROUTE .STK-MED ONE Stop: 10/08/18 12:01 Diphenhydramine HCl (Benadryl) 25 mg IVPUSH Q6H PRN PRN Reason: pruritis Ephedrine Sulfate (Ephedrine Sulfate) 5 mg IVPUSH ASDIRECTED PRN PRN Reason: Hypotension Fentanyl (Sublimaze) 100 mcg EPIDUR Q3H PRN PRN Reason: Pain Last Admin: 10/08/18 12:15 Dose: 100 mcg Fentanyl (Sublimaze) Confirm Administered Dose 100 mcg .ROUTE .STK-MED ONE Stop: 10/08/18 07:13 Last Admin: 10/08/18 07:41 Dose: Not Given Fentanyl/Bupivacaine HCl (Fentanyl/Bupivacaine/Ns 2 Mcg-0.125% 100 Ml) 100 ml EPIDUR ASDIRECTED [facility] Last Admin: 10/08/18 07:34 Dose: 100 ml Ampicillin Sodium 2 gm/ Sodium (Chloride) 100 mls @ 200 mls/hr IV ONETIME ONE Stop: 10/08/18 05:30 Last Admin: 10/08/18 05:15 Dose: 200 mls/hr Ampicillin Sodium 1 gm/ Sodium (Chloride) 100 mls @ 200 mls/hr IV Q4H [facility] Last Admin: 10/08/18 14:35 Dose: Not Given Lactated Ringer's (Ringers, Lactated) 1,000 mls @ 100 mls/hr IV ASDIRECTED [facility] Last Admin: 10/08/18 11:48 Dose: 999 mls/hr Oxytocin/Lactated Ringer's (Pitocin In Lr 10 Units/1,000 Ml) 10 unit in 1,000 mls @ 500 mls/hr IV .CONTINUOUS [facility] Last Admin: 10/08/18 11:01 Dose: 500 mls/hr Lactated Ringer's (Ringers, Lactated) Confirm Administered Dose 1,000 mls @ as directed .ROUTE .STK-MED ONE Stop: 10/08/18 05:12 Last Admin: 10/08/18 05:15 Dose: 900 mls/hr Sodium Chloride (Normal Saline) Confirm Administered Dose 100 mls @ as directed .ROUTE .STK-MED ONE Stop: 10/08/18 05:12 Last Admin: 10/08/18 07:42 Dose: Not Given Nalbuphine HCl (Nubain) 10 mg IVPUSH Q2H PRN PRN Reason: pain Ondansetron HCl (Zofran) 4 mg IVPUSH Q4H PRN PRN Reason: Nausea/Vomiting Sodium Chloride (Saline Flush) 10 ml FLUSH ASDIRECTED PRN PRN Reason: Keep Vein Open
== END 2018-10-10 10:40 | disposition home or self-care (01) | DRG 807 ==
LOC: JD.OBCHECK 04:52 → JD.OB 04:53 → JD.OBCHECK 05:00 → JD.OB 05:01 → OBSVTOIN 12:44 → JD.OB 12:45
PROVIDERS: ADMIT Obstetrics & Gynecology; ATTEND Obstetrics & Gynecology
PROC: 6A550ZT Pheresis of Cord Blood Stem Cells, Single (ICD-10-PCS; principal; 2018-10-08)
PROC: 10E0XZZ Delivery of Products of Conception, External Approach (ICD-10-PCS; principal; 2018-10-08)
PROC: 10907ZC Drainage of Amniotic Fluid, Therapeutic from Products of Conception, Via Natural or Artificial Opening (ICD-10-PCS; principal; 2018-10-08)
PROC: 3E0234Z Introduction of Serum, Toxoid and Vaccine into Muscle, Percutaneous Approach (ICD-10-PCS; 2018-10-08)
PROC: 3E0R3BZ Introduction of Anesthetic Agent into Spinal Canal, Percutaneous Approach (ICD-10-PCS; 2018-10-08)
PROC: 00HU33Z Insertion of Infusion Device into Spinal Canal, Percutaneous Approach (ICD-10-PCS; 2018-10-08)
DX: O99.824 Streptococcus B carrier state complicating childbirth (principal); Z37.0 Single live birth; O69.81X0 Labor and delivery complicated by cord around neck, without compression, not applicable or unspecified; Z3A.38 38 weeks gestation of pregnancy; O26.893 Other specified pregnancy related conditions, third trimester; Z67.41 Type O blood, Rh negative; O99.62 Diseases of the digestive system complicating childbirth; O99.02 Anemia complicating childbirth; D64.9 Anemia, unspecified; K21.9 Gastro-esophageal reflux disease without esophagitis
CPT/HCPCS: 36415; 51701; 51702; 59025; 59409; 85025; 85461; 86592; 86850; 86870; 86900; 86901; A9270-GY; J0290; J2590; J2790; J3010; J3490; J7030; J7120

== ENCOUNTER 2020-11-24 11:15 | Inpatient (IN) | payer OTHER ==
[~2020-11-24 11:15] MED LIST: Bupivacaine 0.25% 10 ML SDV ONE
[2020-11-24] MEDS ORDERED: Ondansetron 4 MG/2 ML SDV IVPUSH PRN (11:53)
[2020-11-24] MEDS ORDERED: Nalbuphine 10 MG/1 ML Vial IVPUSH PRN (11:53)
[2020-11-24] MEDS ORDERED: Sodium Chloride 0.9% 10 ML Syringe FLUSH PRN (11:53)
[2020-11-24] MEDS ORDERED: Oxytocin/Lactated Ringers 10 UNIT/1,000 ML BAG IV SCH ×2 (12:00)
[2020-11-24] MEDS ORDERED: fentaNYL 100 MCG/2 ML SDV EPIDUR PRN (12:08)
[2020-11-24] MEDS ORDERED: ePHEDrine 50 MG/ML SDV IVPUSH PRN (12:08)
[2020-11-24] MEDS ORDERED: diphenhydrAMINE 50 MG/ML SDV IVPUSH PRN (12:08)
[2020-11-24] MEDS ORDERED: Bupivacaine/fentaNYL/NS 100 ML Bag EPIDUR PRN (12:08)
[2020-11-24] MEDS: Lactated Ringers 1,000 ML IV SCH ×2 (12:29→12:30)
[2020-11-24] MEDS ORDERED: Calcium Carbonate 500 MG Tab.Chew PO ONE (18:24)
--- NOTE | 2020-11-24 19:06 | PCM.LDHP ---
L&D History of Present Illness - General Date of Service: 11/24/20 Admit Problem/Dx: Patient Status Order with Admit Dx/Problem 11/24/20 11:53 Patient Status [ADT] Routine Admission Diagnosis/Problem Admission Diagnosis/Problem - History of Present Illness Introduction:: 30 year old at 38w5d here after membrane stripping yesterday in clinic complaining of painful contractions. Cervical change and 4.5/90/-[address] Skinner without complications. o-/imm/neg - Related Data Allergies/Adverse Reactions: Allergies Allergy/AdvReac Type Severity Reaction Status Date / Time No Known Allergies Allergy Verified 11/24/20 15:07 Home Medications: Home Meds Acetaminophen [Tylenol] 650 mg PO Q4H PRN #30 tablet 09/30/16 [Rx] Omeprazole 20 mg PO BIDAC #60 cap.cr 09/30/16 [Rx] Ondansetron [Zofran ODT] 4 mg PO Q4H PRN #30 tab.dis 09/30/16 [Rx] Sucralfate [Carafate] 1 gm PO QIDACANDBED #60 tablet 09/30/16 [Rx] Acetaminophen [Tylenol] 650 mg PO Q4H PRN tablet 10/10/18 [Rx] Ibuprofen [Motrin] 600 mg PO Q6H PRN tablet 10/10/18 [Rx] Past Medical History HEENT History: Reports: Impaired Vision Cardiovascular History: Reports: None Respiratory History: Reports: None Gastrointestinal History: Reports: GERD Genitourinary History: Reports: None [employer] History: Reports: Musculoskeletal History: Reports: None Neurological History: Reports: Migraines Psychiatric History: Reports: Anxiety, Panic Attack, Other (See Below) Other Psychiatric History: Used medication after 2nd child, had anxi ety after Endocrine/Metabolic History: Reports: None Hematologic History: Reports: Anemia, Blood Transfusion(s) Immunologic History: Reports: None Oncologic (Cancer) History: Reports: None Dermatologic History: Reports: None - Infectious Disease History Infectious Disease History: Reports: Chicken Pox - Past Surgical History Head Surgeries/Procedures: Reports: None HEENT Surgical History: Reports: None GI Surgical History: Reports: EGD, Other (See Below) Other GI Surgeries/Procedures: 3-4 years ago had bleeding ulcer in stomach, surgery to fix, recieved blood Neurological Surgical History: Reports: None Social & Family History - Family History Family Medical History: No Pertinent Family History - Tobacco Use Tobacco Use Status *Q: Never Tobacco User - Caffeine Use Caffeine Use: Reports: Coffee - Recreational Drug Use Recreational Drug Use: No - Living Situation & Occupation Living situation: Reports: Occupation: Employed H&P Review of Systems - Review of Systems: Review Of Systems: See Below General: Reports: No Symptoms HEENT: Reports: No Symptoms Pulmonary: Reports: No Symptoms Cardiovascular: Reports: No Symptoms Gastrointestinal: Reports: No Symptoms Genitourinary: Reports: No Symptoms Musculoskeletal: Reports: No Symptoms Skin: Reports: No Symptoms Psychiatric: Reports: No Symptoms Neurological: Reports: No Symptoms Hematologic/Lymphatic: Reports: No Symptoms Immunologic: Reports: No Symptoms L&D Exam - Exam Exam: See Below - Vital Signs Vital Signs: Last Vital Signs Temp 36.6 C 11/24/20 11:33 Pulse 101 H 11/24/20 11:33 Resp 22 H 11/24/20 11:33 BP 119/68 11/24/20 11:33 Pulse Ox 99 11/24/20 11:33 Weight: 63.049 kg - OB Specific Contraction Intensity: Strong Movement: Active Heart Tones: Present Heart Rate (FHR) Variability: Moderate (6-25 bmp) Presentation: Vertex - Villegas Score Villegas Score Cervix Position: Anterior Villegas Score Effacement: >80% Villegas Score Dilation: 3-4 cm - Exam General: Alert, Oriented HEENT: PERRLA, Conjunctiva Clear, EACs Clear, EOMI, Hearing Intact, Mucosa Moist & [place], Nares Patent, Normal Nasal Septum, Posterior Pharynx Clear, TMs Clear Neck: Supple, Trachea Midline Lungs: Clear to Auscultation, Normal Respiratory Effort Cardiovascular: Regular Rate, Regular Rhythm GI/Abdominal Exam: Normal Bowel Sounds, Soft, Non-Tender, No Organomegaly, No Distention, No Abnormal Bruit, No Mass, Pelvis Stable Back Exam: Normal Inspection, Full Range of Motion Extremities: Normal Inspection, Normal Range of Motion, Non-Tender, No Pedal Edema, Normal Capillary Refill Skin: Warm, Dry, Intact Neurological: Cranial Nerves Intact, Reflexes Equal Bilateral Psychiatric: Alert, Normal Affect, Normal Mood - Patient Data Lab Results Last 24 hrs: Laboratory Results - last 24 hr 11/24/20 11/24/20 Range/Units 12:00 12:08 WBC 15.36 H (3.98-10.04) K/mm3 RBC 4.20 (3.98-5.22) M/mm3 Hgb 12.3 (11.2-15.7) gm/dl Hct 37.4 (34.1-44.9) % MCV 89.0 (79.4-94.8) fl MCH 29.3 (25.6-32.2) pg MCHC 32.9 (32.2-35.5) g/dl RDW Std Deviation 50.5 H (36.4-46.3) fL Plt Count 118 L (182-369) K/mm3 MPV 12.2 (9.4-12.3) fl Neut % (Auto) 80.3 H (34.0-71.1) % Lymph % (Auto) 13.5 L (19.3-51.7) % Benzie % (Auto) 5.5 (4.7-12.5) % Eos % (Auto) 0.1 L (0.7-5.8) Baso % (Auto) 0.1 (0.1-1.2) % Neut # (Auto) 12.32 H (1.56-6.13) K/mm3 Lymph # (Auto) 2.08 (1.18-3.74) K/mm3 Benzie # (Auto) 0.85 H (0.24-0.36) K/mm3 Eos # (Auto) 0.02 L (0.04-0.36) K/mm3 Baso # (Auto) 0.02 (0.01-0.08) K/mm3 SARS-CoV-2 RNA (VANESSA) Negative (NEGATIVE) Result Diagrams: 11/24/20 12:08 - Problem List (1) Active labor at term SNOMED Code(s): 42236737 ICD Code: [id number] - Status: Acute Current Visit: Yes Problem List Initiated/Reviewed/Updated: Yes Orders Last 24hrs: Active Orders 24 hr Category Date Time Status Patient Status [ADT] Routine ADT 11/24/20 11:53 Active Activity as Tolerated [RC] PFP Care 11/24/20 11:53 Active Communication Order [RC] ASDIRECTED Care 11/24/20 11:53 Active Notify Provider [RC] ASDIRECTED Care 11/24/20 12:08 Active Notify Provider [RC] PFP Care 11/24/20 11:53 Active Notify Provider [RC] PRN Care 11/24/20 11:53 Active Peripheral IV Care [RC] . DIRECTED Care 11/24/20 11:54 Active Vital Signs [RC] PER UNIT ROUTINE Care 11/24/20 11:53 Active Regular Diet [DIET] Diet 11/24/20 Lunch Active BLOOD BANK HOLD SPECIMEN [BBK] Stat Lab 11/24/20 11:53 Ordered RAPID PLASMA REAGIN,RPR [CHEM] Routine Lab 11/24/20 12:08 Received Bupivacaine/fentaNYL/NS [fentaNYL/Bupivacaine/NS 2 MCG- Med 11/24/20 12:08 Active 0.125% 100 ML] 100 ml EPIDUR ASDIRECTED PRN Lactated Ringers [Ringers, Lactated] 1,000 ml Med 11/24/20 12:00 Active IV ASDIRECTED Nalbuphine [Nubain] Med 11/24/20 11:53 Active 10 mg IVPUSH Q2H PRN Ondansetron [Zofran] Med 11/24/20 11:53 Active 4 mg IVPUSH Q4H PRN Oxytocin/Lactated Ringers [Pitocin in LR 10 Units/1,000 Med 11/24/20 12:00 Active ML] 10 unit in 1,000 ml IV .CONTINUOUS Oxytocin/Lactated Ringers [Pitocin in LR 10 Units/1,000 Med 11/24/20 12:00 Active ML] 10 unit in 1,000 ml IV TITRATE Sodium Chloride 0.9% [Saline Flush] Med 11/24/20 11:53 Active 10 ml FLUSH ASDIRECTED PRN diphenhydrAMINE [Benadryl] Med 11/24/20 12:08 Active 25 mg IVPUSH Q6H PRN ePHEDrine [ePHEDrine sulfate] Med 11/24/20 12:08 Active 5 mg IVPUSH ASDIRECTED PRN fentaNYL [Sublimaze] Med 11/24/20 12:08 Active 100 mcg EPIDUR Q3H PRN Electronic Heart Tones Ext w TOCO [WOMSER] Oth 11/24/20 11:53 Ordered Routine Electronic Heart Tones Internal [WOMSER] Per Unit Oth 11/24/20 11:53 Ordered Routine Peripheral IV Insertion Adult [OM.PC] Routine Oth 11/24/20 11:53 Ordered Resuscitation Status Routine Resus Stat 11/24/20 11:53 Ordered Medication Orders Diphenhydramine HCl (Benadryl) 25 mg IVPUSH Q6H PRN PRN Reason: pruritis Ephedrine Sulfate (Ephedrine Sulfate) 5 mg IVPUSH ASDIRECTED PRN PRN Reason: Hypotension Fentanyl (Sublimaze) 100 mcg EPIDUR Q3H PRN PRN Reason: Pain Last Admin: 11/24/20 12:30 Dose: 100 mcg Documented by: TEODORO Fentanyl/Bupivacaine HCl (Fentanyl/Bupivacaine/Ns 2 Mcg-0.125% 100 Ml) 100 ml EPIDUR ASDIRECTED PRN PRN Reason: Pain Last Admin: 11/24/20 12:30 Dose: 100 ml Documented by: TEODORO Oxytocin/Lactated Ringer's (Pitocin In Lr 10 Units/1,000 Ml) 10 unit in 1,000 mls @ 12 mls/hr IV TITRATE KODI; Protocol Last Admin: 11/24/20 18:33 Dose: 2 munits/min, 12 mls/hr Documented by: DARCY Oxytocin/Lactated Ringer's (Pitocin In Lr 10 Units/1,000 Ml) 10 unit in 1,000 mls @ 100 mls/hr IV .CONTINUOUS KODI Lactated Ringer's (Ringers, Lactated) 1,000 mls @ 100 mls/hr IV ASDIRECTED KODI Last Admin: 11/24/20 12:30 Dose: 100 mls/hr Documented by: Infusion: 11/24/20 12:30 Dose: 100 mls/hr Documented by: Admin: 11/24/20 12:29 Dose: 100 mls/hr Documented by: TEODORO Nalbuphine HCl (Nubain) 10 mg IVPUSH Q2H PRN PRN Reason: Pain Ondansetron HCl (Zofran) 4 mg IVPUSH Q4H PRN PRN Reason: Nausea/Vomiting Sodium Chloride (Saline Flush) 10 ml FLUSH ASDIRECTED PRN PRN Reason: Keep Vein Open Assessment/Plan Comment:: Term labor. Progressing well. Desires epidural Anticipate unless otherwise indicated.
--- NOTE | 2020-11-24 19:07 | PCM.PNLD ---
Labor Progress Note - VS & Meds Vital Signs: Last Vital Signs Temp 36.6 C 11/24/20 11:33 Pulse 101 H 11/24/20 11:33 Resp 22 H 11/24/20 11:33 BP 119/68 11/24/20 11:33 Pulse Ox 99 11/24/20 11:33 Active Medications: Current Medications Diphenhydramine HCl (Benadryl) 25 mg IVPUSH Q6H PRN PRN Reason: pruritis Ephedrine Sulfate (Ephedrine Sulfate) 5 mg IVPUSH ASDIRECTED PRN PRN Reason: Hypotension Fentanyl (Sublimaze) 100 mcg EPIDUR Q3H PRN PRN Reason: Pain Last Admin: 11/24/20 12:30 Dose: 100 mcg Documented by: Fentanyl/Bupivacaine HCl (Fentanyl/Bupivacaine/Ns 2 Mcg-0.125% 100 Ml) 100 ml EPIDUR ASDIRECTED PRN PRN Reason: Pain Last Admin: 11/24/20 12:30 Dose: 100 ml Documented by: Oxytocin/Lactated Ringer's (Pitocin In Lr 10 Units/1,000 Ml) 10 unit in 1,000 mls @ 12 mls/hr IV TITRATE KODI; Protocol Last Admin: 11/24/20 18:33 Dose: 2 munits/min, 12 mls/hr Documented by: Oxytocin/Lactated Ringer's (Pitocin In Lr 10 Units/1,000 Ml) 10 unit in 1,000 mls @ 100 mls/hr IV .CONTINUOUS KODI Lactated Ringer's (Ringers, Lactated) 1,000 mls @ 100 mls/hr IV ASDIRECTED KODI Last Admin: 11/24/20 12:30 Dose: 100 mls/hr Documented by: Nalbuphine HCl (Nubain) 10 mg IVPUSH Q2H PRN PRN Reason: Pain Ondansetron HCl (Zofran) 4 mg IVPUSH Q4H PRN PRN Reason: Nausea/Vomiting Sodium Chloride (Saline Flush) 10 ml FLUSH ASDIRECTED PRN PRN Reason: Keep Vein Open Discontinued Medications Calcium Carbonate/Glycine (Tums) 1,000 mg PO ONETIME ONE Stop: 11/24/20 18:25 Last Admin: 11/24/20 18:32 Dose: 1,000 mg Documented by: - Uterine Contractions Contraction Intensity: Strong - Monitoring Heart Rate (FHR) Variability: Moderate (6-25 bmp) - Vaginal Exam Dilation (cm): 8 Station: -2 Cervical Position: Midposition - Labor Progress (Free Text) Labor Progress: Progressing well. AROM clear fluid.
--- NOTE | 2020-11-24 19:39 | PCM.SN.2 ---
- Free Text/Narrative Note: Stage I - Patient presented in active labor. Epidural anesthesia. AROM clear fluid. Progressed to complete with overall reassuring heart tones. Stage II - of viable male, weight pending, 8/9 APGARS at 1922. Head delivered in controlled manner over intact perineum. Body and shoulders atraumatically. Positive cry. Placed on maternal abdomen. Cord clamped and cut. Cord blood collected. Stage III - of intact placenta. 3vc. No laceration. QBL 250.
[2020-11-24] MEDS ORDERED: Witch Hazel Medicated Pads 40/Jar TOP PRN (19:54)
[2020-11-24] MEDS ORDERED: Docusate Sodium 100 MG Cap PO PRN (19:54)
[2020-11-24] MEDS ORDERED: Ibuprofen 600 MG Tab PO PRN (19:54)
[2020-11-24] MEDS: Acetaminophen 325 MG Tab PO PRN (20:31)
[2020-11-25] MEDS: Acetaminophen 325 MG Tab PO PRN ×2 (04:37→12:30)
--- NOTE | 2020-11-25 07:10 | PCM.DCSUM1 ---
Discharge Summary - Hospital Course Diagnosis: Stroke: No - Discharge Data Discharge Date: 11/25/20 Discharge Disposition: Home, Self-Care 01 Condition: Good - Referral to Home Health Primary Care Physician: Inge Dupree MD - Discharge Diagnosis/Problem(s) (1) Active labor at term SNOMED Code(s): 93610483 ICD Code: [id number] - Status: Acute Current Visit: Yes - Patient Instructions Diet: Usual Diet as Tolerated Activity: No Strenuous Activities Activity, Other: pelvic rest Driving: May Drive Today Showering/Bathing: May Shower Notify Provider of: Fever, Increased Pain, Swelling and Redness, Drainage, Nausea and/or Vomiting - Discharge Plan *PRESCRIPTION DRUG MONITORING PROGRAM REVIEWED*: No *COPY OF PRESCRIPTION DRUG MONITORING REPORT IN PATIENT TRAVIS: No Home Medications: Home Meds Acetaminophen [Tylenol] 650 mg PO Q4H PRN #30 tablet 09/30/16 [Rx] Omeprazole 20 mg PO BIDAC #60 cap.cr 09/30/16 [Rx] Ondansetron [Zofran ODT] 4 mg PO Q4H PRN #30 tab.dis 09/30/16 [Rx] Sucralfate [Carafate] 1 gm PO QIDACANDBED #60 tablet 09/30/16 [Rx] Acetaminophen [Tylenol] 650 mg PO Q4H PRN tablet 10/10/18 [Rx] Ibuprofen [Motrin] 600 mg PO Q6H PRN tablet 10/10/18 [Rx] Referrals: Abigail Skinner MD [Physician] - (2 weeks) - Discharge Summary/Plan Comment DC Time >30 min.: No - General Info Date of Service: 11/25/20 Functional Status: Reports: Pain Controlled - Review of Systems General: Reports: No Symptoms HEENT: Reports: No Symptoms Pulmonary: Reports: No Symptoms Cardiovascular: Reports: No Symptoms Gastrointestinal: Reports: No Symptoms Genitourinary: Reports: No Symptoms Musculoskeletal: Reports: No Symptoms Skin: Reports: No Symptoms Neurological: Reports: No Symptoms Psychiatric: Reports: No Symptoms - Patient Data Vitals - Most Recent: Last Vital Signs Temp 36.7 C 11/25/20 04:33 Pulse 93 11/25/20 04:33 Resp 14 11/25/20 04:33 BP 121/77 11/25/20 04:33 Pulse Ox 98 11/25/20 04:33 Weight - Most Recent: 63.049 kg I&O - Last 24 hours: Intake & Output 11/24/20 11/25/20 11/25/20 22:59 06:59 14:59 Intake Total 2600 Output Total 900 Balance 1700 Lab Results - Last 24 hrs: Laboratory Results - last 24 hr 11/24/20 11/24/20 11/24/20 Range/Units 12:00 12:08 12:08 WBC 15.36 H (3.98-10.04) K/mm3 RBC 4.20 (3.98-5.22) M/mm3 Hgb 12.3 (11.2-15.7) gm/dl Hct 37.4 (34.1-44.9) % MCV 89.0 (79.4-94.8) fl MCH 29.3 (25.6-32.2) pg MCHC 32.9 (32.2-35.5) g/dl RDW Std Deviation 50.5 H (36.4-46.3) fL Plt Count 118 L (182-369) K/mm3 MPV 12.2 (9.4-12.3) fl Neut % (Auto) 80.3 H (34.0-71.1) % Lymph % (Auto) 13.5 L (19.3-51.7) % Arthur % (Auto) 5.5 (4.7-12.5) % Eos % (Auto) 0.1 L (0.7-5.8) Baso % (Auto) 0.1 (0.1-1.2) % Neut # (Auto) 12.32 H (1.56-6.13) K/mm3 Lymph # (Auto) 2.08 (1.18-3.74) K/mm3 Arthur # (Auto) 0.85 H (0.24-0.36) K/mm3 Eos # (Auto) 0.02 L (0.04-0.36) K/mm3 Baso # (Auto) 0.02 (0.01-0.08) K/mm3 RPR Non-reactive (NONREACTIVE) SARS-CoV-2 RNA (VANESSA) Negative (NEGATIVE) Med Orders - Current: Current Medications Acetaminophen (Tylenol) 650 mg PO Q4H PRN PRN Reason: Pain (moderate 4-6) Last Admin: 11/25/20 04:37 Dose: 650 mg Documented by: Docusate Sodium (Colace) 100 mg PO BID PRN PRN Reason: Constipation Ibuprofen (Motrin) 600 mg PO Q6H PRN PRN Reason: Mild pain or fever [place] (Tucks) 1 pad TOP ASDIRECTED PRN PRN Reason: Pain Discontinued Medications Calcium Carbonate/Glycine (Tums) 1,000 mg PO ONETIME ONE Stop: 11/24/20 18:25 Last Admin: 11/24/20 18:32 Dose: 1,000 mg Documented by: Diphenhydramine HCl (Benadryl) 25 mg IVPUSH Q6H PRN PRN Reason: pruritis Ephedrine Sulfate (Ephedrine Sulfate) 5 mg IVPUSH ASDIRECTED PRN PRN Reason: Hypotension Fentanyl (Sublimaze) 100 mcg EPIDUR Q3H PRN PRN Reason: Pain Last Admin: 11/24/20 12:30 Dose: 100 mcg Documented by: Fentanyl/Bupivacaine HCl (Fentanyl/Bupivacaine/Ns 2 Mcg-0.125% 100 Ml) 100 ml EPIDUR ASDIRECTED PRN PRN Reason: Pain Last Admin: 11/24/20 12:30 Dose: 100 ml Documented by: Oxytocin/Lactated Ringer's (Pitocin In Lr 10 Units/1,000 Ml) 10 unit in 1,000 mls @ 12 mls/hr IV TITRATE KODI; Protocol Last Admin: 11/24/20 18:33 Dose: 2 munits/min, 12 mls/hr Documented by: Oxytocin/Lactated Ringer's (Pitocin In Lr 10 Units/1,000 Ml) 10 unit in 1,000 mls @ 100 mls/hr IV .CONTINUOUS KODI Last Admin: 11/24/20 19:25 Dose: 500 mls/hr Documented by: Lactated Ringer's (Ringers, Lactated) 1,000 mls @ 100 mls/hr IV ASDIRECTED KODI Last Admin: 11/24/20 12:30 Dose: 100 mls/hr Documented by: Nalbuphine HCl (Nubain) 10 mg IVPUSH Q2H PRN PRN Reason: Pain Ondansetron HCl (Zofran) 4 mg IVPUSH Q4H PRN PRN Reason: Nausea/Vomiting Sodium Chloride (Saline Flush) 10 ml FLUSH ASDIRECTED PRN PRN Reason: Keep Vein Open - Exam General: Reports: Alert, Oriented HEENT: Reports: Pupils Equal, Pupils Reactive, EOMI, Mucous Membr. Moist/[place] Neck: Reports: Supple Lungs: Reports: Clear to Auscultation, Normal Respiratory Effort Cardiovascular: Reports: Regular Rate, Regular Rhythm GI/Abdominal Exam: Normal Bowel Sounds, Soft, Non-Tender, No Organomegaly, No Distention, No Abnormal Bruit, No Mass, Pelvis Stable Rectal (Female) Exam: Normal Exam, Normal Rectal Tone Back Exam: Reports: Normal Inspection, Full Range of Motion Extremities: Normal Inspection, Normal Range of Motion, Non-Tender, No Pedal Edema, Normal Capillary Refill Skin: Reports: Warm, Dry, Intact Wound/Incisions: Reports: Healing Well Neurological: Reports: No New Focal Deficit Psy/Mental Status: Reports: Alert, Normal Affect, Normal Mood
[2020-11-25 15:48] VITALS: BP 124/83; PULSE 83
--- NOTE | 2020-11-26 14:03 | PCM48HPAN ---
Post Anesthesia Note - EVALUATION WITHIN 48HRS OF ANESTHETIC Vital Signs in Normal Range: Yes Patient Participated in Evaluation: No (Discharged doing well with no concerns per nursing staff. ) Respiratory Function Stable: Yes Airway Patent: Yes Cardiovascular Function Stable: Yes Hydration Status Stable: Yes Pain Control Satisfactory: Yes Nausea and Vomiting Control Satisfactory: Yes Mental Status Recovered: Yes Vital Signs: Last Vital Signs Temp 36.3 C 11/25/20 15:35 Pulse 83 11/25/20 15:36 Resp 16 11/25/20 15:35 BP 124/83 11/25/20 15:36 Pulse Ox 100 11/25/20 15:36
== END 2020-11-25 19:50 | disposition home or self-care (01) | DRG 807 ==
LOC: JD.OBCHECK 11:15 → JD.OB 11:24 → JD.OBCHECK 11:53 → JD.OB 11:53 → OBSVTOIN 20:26 → UNDODISIN 11-25 19:50
PROVIDERS: ADMIT Obstetrics & Gynecology; ATTEND Obstetrics & Gynecology
PROC: 10E0XZZ Delivery of Products of Conception, External Approach (ICD-10-PCS; principal; 2020-11-24)
PROC: 10907ZC Drainage of Amniotic Fluid, Therapeutic from Products of Conception, Via Natural or Artificial Opening (ICD-10-PCS; 2020-11-24)
PROC: 3E0R3BZ Introduction of Anesthetic Agent into Spinal Canal, Percutaneous Approach (ICD-10-PCS; 2020-11-24)
PROC: 00HU33Z Insertion of Infusion Device into Spinal Canal, Percutaneous Approach (ICD-10-PCS; 2020-11-24)
DX: O80 Encounter for full-term uncomplicated delivery (principal); Z37.0 Single live birth; Z3A.39 39 weeks gestation of pregnancy; Z20.822 Contact with and (suspected) exposure to COVID-19
CPT/HCPCS: 01967; 36415; 51702; 59025; 59409; 85025; 85461; 86592; 86850; 86870; 86900; 86901; A9270-GY; J2590; J2790; J3010; J3490; J7120; U0002